=== PATIENT | female | born 1970 | race Caucasian/White ===

== ENCOUNTER 2019-10-03 16:54 | Emergency (ER) | payer BC, OTHER ==
--- OUTSIDE RECORDS SUMMARY | 2019-10-03 17:01 | XMS REPORT | Continuity of Care Document ---
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 [phone] Problems Active Problems Provider Date Electrocardiogram abnormal Milton Dobbs M.D., Onset: 10/25/2018 [facility] Essential hypertension Milton Dobbs M.D., Onset: 10/25/2018 [facility] Edema Milton Dobbs M.D., Onset: 10/25/2018 [facility] Tachycardia Milton Dobbs M.D., Onset: 10/25/2018 [facility] Other specified symptoms and signs Milton Dobbs M.D., Onset: 2018 involving the circulatory and [facility] respiratory systems Benign essential hypertension Tia Hodges, UMANG, Onset: 01/14/2019 FACILITIES LOCATOR Social History Type Date Description Comments Sex Unknown Tobacco Use Start: Unknown currently smokes 1/2 Pack Daily Smoking Status Reviewed: 01/14/19 currently smokes 1/2 Pack Daily ETOH Use Occasionally consumes alcohol Recreational Drug Use Denies Drug Use Allergies, Adverse Reactions, Alerts Active Allergies Reaction Severity Comments Date Propranolol visual effects, dizziness 01/14/2019 Inactive Allergies NKDA 09/07/2009 Medications Active Medications SIG Qnty Indications Ordering Provider Date Diltiazem HCL ER 1 by mouth 30caps R00.0 Tia Hodges 02/19/2019 Coated Beads every day UMANG Sanchez, 120mg Caps FACILITIES LOCATOR ER 24HR R00.0 Cyclobenzaprine HCL 1 by mouth three Unknown 10mg Tablets times a day as needed muscle spasms Famotidine 1 by mouth twice a Unknown 20mg Tablets day Aspirin 81 1 by mouth every day Unknown 81mg Tablets DR Hairston For Her 50+ take one every day Unknown Tablets Levothyroxine Sodium El Philip MD 50mcg Tablets Immunizations Description No Information Available Vital Signs Date Vital Result Comment 10/03/2019 3:25pm BP Systolic Sitting Left Arm 155 mmHg BP Diastolic Sitting Left Arm 95 mmHg Heart Rate 104 /min Respiratory Rate 18 /min Height 67 inches 5'7" Weight 290.00 lb BMI (Body Mass Index) 45.4 kg/m2 BSA (Body Surface Area) 2.37 m2 [place] body weight in kilograms 61 kg O2 % BldC Oximetry 97 % 02/19/2019 3:02pm BP Systolic Sitting Left Arm 124 mmHg BP Diastolic Sitting Left Arm 82 mmHg Heart Rate 96 /min Respiratory Rate 18 /min Height 68 inches 5'8" Weight 284.00 lb BMI (Body Mass Index) 43.2 kg/m2 BSA (Body Surface Area) 2.37 m2 [place] body weight in kilograms 63 kg O2 % BldC Oximetry 94 % Ora Results Description No Information Available Procedures Description No Information Available Medical Devices Description No Information Available Encounters Type Date Location Provider Dx Diagnosis Office Visit 10/03/2019 Cardiology Office Tia Hodges R00.0 Tachycardia, 3:20p UMANG Sanchez, unspecified FACILITIES LOCATOR I10 Essential (primary) hypertension Assessments Date Code Description Provider 10/03/2019 R00.0 Tachycardia, unspecified Tia Hodges, MSN, FACILITIES LOCATOR 10/03/2019 I10 Essential (primary) hypertension Tia Hodges, MSN , FACILITIES LOCATOR Plan of Treatment 10/03/2019 - Tia Hodges, MSN, FNPR00.0 Tachycardia, unspecifiedComments:No changes.I10 Essential (primary) hypertensionComments:No changes. BP goal is <130/80 mmHg.AllFollow up:Thank you for allowing us to participate in the care of this patient. We will see her on a PRN basis from this point. We would be happy to see her again as deemed necessary. Functional Status Functional Condition Comment Date Status Independent with all ADL's Active Mental Status Description No Information Available Referrals Description No Information Available
--- NOTE | 2019-10-03 17:48 | UC ---
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 Pt states she fell backwards onto a chair. " -she fell backwards onto rolling chair, chair fell backwards. she braced herself with both hands she thinsg but that pain/stiffness has resolved. -rt hand dominant. -no w/n/t into hand -has continued to work but pain got suddenly worse yetsreday -she sits at a high table and with her elbows resting on a table with shoulders abducted -she has pain radiating into her upper rt arm. -having significant difficulty dressing, toileting, putting on deodorant. - History of Current Complaint Chief Complaint: UCUpperExtremity Stated Complaint: RIGHT SHOULDER INJURY Time Seen by Provider: 10/03/19 17:31 Hx Last Menstrual Period: 08/04/16 Pain Intensity: 10 - Allergies/Home Medications Allergies/Adverse Reactions: Allergies Allergy/AdvReac Type Severity Reaction Status Date / Time methylprednisolone Allergy Rash Verified 10/03/19 17:04 PMH/Surg Hx/FS Hx/Imm Hx Previously Healthy: Yes Endocrine History: Hypothyroidism Cardiovascular History: Hypertension - Surgical History Surgical History: Yes Surgery Procedure, Year, and Place: 3 knee surgeries [place]. tonsilectomly - Family History Known Family History: Positive: Cardiac Disease, Hypertension, Diabetes, Other - no hx dvt - Social History Alcohol Use: Occasionally Substance Use Type: None Smoking Status (MU): Current Every Day Smoker Type: Cigarettes Amount Used/How Often: 6 cig day Length of Time of Smoking/Using Tobacco: since 1984 Have You Smoked in the Last Year: Yes Household Exposure Type: Cigarettes Review of Systems All Other Systems Reviewed And Are Negative: Yes Constitutional: Positive: Negative. Negative: Fever, Chills, Fatigue Skin: Positive: Negative. Negative: Rash, Bruising Eyes: Positive: Negative ENT: Positive: Negative Respiratory: Positive: Negative Cardiovascular: Positive: Negative Gastrointestinal: Positive: Negative Motor: Positive: Decreased ROM, Weakness Neurovascular: Positive: Negative. Negative: Decreased Sensation, Decreased Pulses Musculoskeletal: Positive: Arthralgia, Decreased ROM, Myalgia Neurological: Positive: Negative. Negative: Numbness Psychological: Positive: Negative Is Patient Immunocompromised?: No Physical Exam Triage Information Reviewed: Yes Appearance: Pain Distress Vital Signs: Initial Vital Signs Temp 99.2 F 10/03/19 17:05 Pulse 106 10/03/19 17:05 Resp 16 10/03/19 17:05 BP 153/104 10/03/19 17:05 Pulse Ox 97 10/03/19 17:05 Vital Signs Reviewed: Yes ENT Exam: Normal Neck exam: Normal Neck: Positive: Supple, Nontender, Other: - FROM, NT Respiratory Exam: Normal Respiratory: Positive: Lungs clear, Normal breath sounds, No respiratory distress, No accessory muscle use. Negative: Crackles, Rhonchi, Stridor, Wheezing Cardiovascular Exam: Normal Cardiovascular: Positive: Tachycardia - slight at 106, improved apical to 90 Abdominal Exam: Normal Musculoskeletal: Positive: ROM Limited @ - unable to passively flex or abduct past 30 d/t pain. unable to internally or externally rotate. strength intact elbow flexion. Sens intact to LT fingers. CR brisk. tender over distal bicep w/ o bruising or erythema. Neurological Exam: Normal Psychological Exam: Normal Skin Exam: Normal Skin: Negative: Rashes Upper Extremity Course/Dx - Course Course Of Treatment: Rt shoulder xray reviewed by myself - no frx evident -she understands that this is not yet read officially by RAD and will be read in AM. -ice 20 mins on/off w/ a towel barrier frequently. -follow up for your blood pressure -pain suddenly worsened yesterday into rt upper arm. she does not recall what she was doing at the time. I question if there is a bicep tendon rupture. I recommend that she is seen tomorrow as if this were the case, evaluation/ possible surgery should be done in timely fashion. she understood me well and v/ u. - Differential Dx/Diagnosis Differential Diagnosis/HQI/PQRI: Contusion, Fracture (Closed), Strain, Sprain Provider Diagnosis: Right shoulder pain Discharge ED - Sign-Out/Discharge Documenting (check all that apply): Patient Departure All imaging exams completed and their final reports reviewed: No - Discharge Plan Condition: Stable Disposition: HOME Forms: *Work Release Referrals: El Philip MD [Primary Care Provider] - El Hanna MD [Medical Doctor] - 1 Week Additional Instructions: Your blood pressure is elevated today. Ibuprofen and pain can raise your blood pressure. You were seen by the cosmetology professor today for blood pressure management. Please make sure to follow up for recheck. Repeating your blood pressure showed improvement. Right shoulder xray will be read by the radiologist in the morning. I did not appreciate any fractures. You should get a call if there is a discrepancy. Rest and apply Ice. - Billing Disposition and Condition Condition: STABLE Disposition: Home
[2019-10-03 18:23] VITALS: BP 142/86
--- NOTE | 2019-10-04 08:17 | UC ---
- Progress Note Progress Note: Reviewed Dr. Bates's reading of shoulder xray: no fracture, findings consistent with calcific tendonopathy. Patient is splinted and has been referred to orthopedics for evaluation. No change in management based on radiology reading. Course/Dx - Diagnoses Provider Diagnoses: Right shoulder pain Discharge ED - Sign-Out/Discharge Documenting (check all that apply): Post-Discharge Follow Up All imaging exams completed and their final reports reviewed: Yes - Discharge Plan Condition: Stable Disposition: HOME Forms: *Work Release Referrals: El Philip MD [Primary Care Provider] - El Hanna MD [Medical Doctor] - 1 Week Additional Instructions: Your blood pressure is elevated today. Ibuprofen and pain can raise your blood pressure. You were seen by the clinical data management manager today for blood pressure management. Please make sure to follow up for recheck. Repeating your blood pressure showed improvement. Right shoulder xray will be read by the radiologist in the morning. I did not appreciate any fractures. You should get a call if there is a discrepancy. Rest and apply Ice. - Billing Disposition and Condition Condition: STABLE Disposition: Home
== END 2019-10-03 18:39 | disposition home or self-care (01) ==
LOC: UCCORT 16:54
DX: M25.511 Pain in right shoulder (principal); I10 Essential (primary) hypertension; F17.210 Nicotine dependence, cigarettes, uncomplicated; Z88.8 Allergy status to other drugs, medicaments and biological substances; W07.XXXA Fall from chair, initial encounter; Y92.9 Unspecified place or not applicable; Y99.0 Civilian activity done for income or pay
CPT/HCPCS: 99212; G0463